=== PATIENT | male | born 1980 | race Caucasian/White ===

== ENCOUNTER → 2018-01-09 08:43 | Outpatient (CLI) | payer OTHER, SELFPAY ==
[2018-01-09 10:35] LABS: Urine N gonorrhoeae NOT DETECTED
[2018-01-09 11:02] LABS: Urine Chlamydia NOT DETECTED
== END ==
PROVIDERS: Visit Provider Physician Assistant
DX: R10.30 Lower abdominal pain, unspecified (principal)
CPT/HCPCS: 87491; 87591